=== PATIENT | male | born 1980 | race Hispanic/Latino ===

== ENCOUNTER → 2016-10-07 | Outpatient (CLI) | payer OTHER ==
[~2016-10-07] MED LIST: BUPR150T3 PO; IBUP80TA PO; LIDO5TD TD; MOBI7.5T10 PO; ROBA750T4 PO; pain cream TOP
[2016-10-07 09:02] LABS: ALBUMIN 3.8 GM/DL (3.2-5.2); ALBUMIN/GLOBULIN RATIO 1.03 (1.00-1.93); ALKALINE PHOSPHATASE 72 U/L (45-117); ALT/SGPT 36 U/L (12-78); ANION GAP 7 MEQ/L (8-16); AST/SGOT 19 U/L (15-37); BILIRUBIN,TOTAL 0.5 MG/DL (0.2-1.0); BLOOD UREA NITROGEN 13 MG/DL (7-18); CALCIUM LEVEL 8.6 MG/DL (8.5-10.1); CARBON DIOXIDE LEVEL 27 MEQ/L (21-32); CHLORIDE LEVEL 110 MEQ/L (98-107); CREATININE FOR GFR 1.05 MG/DL (0.70-1.30); FREE T4 1.03 NG/DL (0.76-1.46); GLOMERULAR FILTRATION RATE > 60.0 (>60); GLUCOSE, FASTING 91 MG/DL (70-105); POTASSIUM SERUM 3.9 MEQ/L (3.5-5.1); SODIUM LEVEL 144 MEQ/L (136-145); TOTAL PROTEIN 7.5 GM/DL (6.4-8.2)
[2016-10-09 10:05] LABS: CORTISOL AM 9.5 UG/DL (4.3-22.4)
[2016-10-09 10:06] LABS: LUTEINIZING HORMONE 5.6 mIU/mL (1.5-9.3); PROLACTIN 7.4 NG/ML (2.1-17.7)
== END ==
LOC: M LAB 07:41
PROVIDERS: ATTEND Internal Medicine Endocrinology, Diabetes & Metabolism
DX: D35.2 Benign neoplasm of pituitary gland (principal)

== ENCOUNTER → 2021-10-26 | Outpatient (REF) | payer OTHER ==
[~2021-10-26] MED LIST changes: +BUPR150T12 PO; -BUPR150T3 PO; +MOBI4TAB PO; -MOBI7.5T10 PO
== END ==
LOC: M SMT 13:33
PROVIDERS: ATTEND Urology
DX: Z30.2 Encounter for sterilization (principal)

== ENCOUNTER → 2021-12-20 | Outpatient (REF) | payer OTHER ==
[2021-12-20 09:46] LABS: SEMEN APPEARANCE OPAQUE (OPAQUE); SEMEN VISCOSITY LIQUID (LIQUID); SEMEN pH 7.5 (7.0-8.0); WBC CONCENTRATION <=1 M/ml (<=1 M/ml)
== END ==
LOC: M SMT 09:20
PROVIDERS: ATTEND Urology
DX: Z30.2 Encounter for sterilization (principal)

== ENCOUNTER → 2022-01-10 | Outpatient (REF) | payer OTHER ==
[2022-01-10 09:21] LABS: SEMEN APPEARANCE OPAQUE (OPAQUE); SEMEN VISCOSITY LIQUID (LIQUID); SEMEN VOLUME 1.2 ml (2.0-5.0); SEMEN pH 8.5 (7.0-8.0); WBC CONCENTRATION <=1 M/ml (<=1 M/ml)
== END ==
LOC: M SMT 09:10
PROVIDERS: ATTEND Urology
DX: Z31.41 Encounter for fertility testing (principal)